=== PATIENT | male | born 1950 | race African-American/Black ===

== ENCOUNTER 2023-09-12 18:23 | Inpatient (IN) | payer OTHER ==
[2023-09-12 19:02] LABS: #Eosinphils 0.1 thou/uL (0.0-0.7); #Lymphocytes 1.1 thou/uL (1.20-3.40); #Monocytes 0.4 thou/uL (0.11-0.59); %Basophils 0.9 % (0.0-1.0); %Eosinophils 1.8 % (0.0-10.0); %Lymphocytes 18.9 % (21.0-51.0); %Monocytes 7.1 % (0.0-10.0); %Neutrophils 71.4 % (42.0-75.0); Hematocrit 38.8 % (42.0-52.0); Hemoglobin 12.1 g/dL (14.0-18.0); Mean Corpuscular HGB CONC 31.1 g/dL (32.0-36.0); Mean Corpuscular Hemoglobin 29.8 pg (27.0-31.0); Mean Platelet Volume 7.6 fL (7.4-10.4); Platelet Count 283 10x3/uL (130-400); RBC Distribution Width 12.7 % (11.5-14.5); Red Blood Cell (RBC) Count 4.04 mill/uL (4.70-6.10); White Blood Cell (WBC) Count 5.6 10x3/uL (4.8-10.8)
[2023-09-12 19:11] LABS: Bilirubin Small (Negative); Blood, Urine Negative (Negative); Clarity Slightly Cloudy (Clear); Glucose, Urine (Dipstick) Negative (Negative); Ketone, Urine 15 mg/dL (Negative); Leukocyte Moderate (Negative); Nitrite Negative (Negative); Protein, Urine (Dipstick) > or equal to 300 mg/dL (Neg-Trace); Specific Gravity, Urine 1.025 (1.005-1.030)
[2023-09-12 19:12] LABS: INR-International Normal Ratio 0.9; Prothrombin Time 12.3 sec (12.0-14.7)
[2023-09-12 19:13] LABS: PTT 28.7 sec (22.9-36.1)
[2023-09-12 19:15] LABS: D-Dimer Test 0.32 mcg/mL (0.27-0.43)
[2023-09-12 19:20] LABS: ALT (SGPT) 13 U/L (8-55); AST (SGOT) 17 U/L (5-34); Albumin 3.7 g/dL (3.4-4.8); Alkaline Phosphatase 112 U/L (40-110); Anion Gap 13 mmol/L (10-20); BUN (Urea Nitrogen) 12 mg/dL (8.4-25.7); Bilirubin, Total 0.3 mg/dL (0.2-1.2); Calc. Creatinine Clearance 0 mL/min (70-130); Calcium 9.3 mg/dL (7.8-10.44); Carbon Dioxide 24 mmol/L (23-31); Chloride 110 mmol/L (98-107); Estimated GFR 52; Glucose 142 mg/dL (83-110); Protein, Total 7.7 g/dL (5.8-8.1); Sodium 143 mmol/L (136-145)
[2023-09-12 19:21] LABS: Acetaminophen Less than 10 mcg/mL (10.0-30.0); Alcohol Less than 10.0 mg/dL (Less than 10); Salicylate Less than 8.0 mg/dL (15.0-30.0)
[2023-09-12 19:22] LABS: Troponin I 0.015 ng/mL (< 0.028)
[2023-09-12 19:25] LABS: Bacteria/HPF 4+ HPF (None Seen); CAUTI Indications for Culture Alt mental st,lethar; RBC/HPF None Seen HPF (0-3)
[2023-09-12 19:27] LABS: Urine Culture Reflex Yes Yes
[2023-09-12 19:46] LABS: Influenza A by NAA Not Detected (NotDetected); Influenza B by NAA Not Detected (NotDetected); SARS-CoV-2 NAA Rapid Test Not Detected (NotDetected)
[2023-09-12] MEDS ORDERED: Ipratropium/Albuterol 3 ML NEB NEB PRN (21:59)
[2023-09-12] MEDS ORDERED: Acetaminophen 325 MG TAB PO PRN (22:00)
[2023-09-12] MEDS ORDERED: Ondansetron PF 4 MG/2 ML Vial IVP PRN (22:00)
[2023-09-12] MEDS ORDERED: Ondansetron ODT 4 MG TAB SL PRN (22:00)
[2023-09-12] MEDS: Acetaminophen 500 MG TAB ONE (22:28)
[2023-09-12] MEDS: Sodium Chloride 0.9% 100 ML ONE (22:28)
[2023-09-12] MEDS: cefTRIAXone (ROCEPHIN) 2 GM VIAL ONE (22:29)
[2023-09-12] MEDS: Vancomycin 1 GM VIAL ONE (22:29)
[2023-09-12] MEDS: Sodium Chloride 0.9% 1,000 ML IV SCH (23:22)
[2023-09-13 07:26] LABS: Hematocrit 37.2 % (42.0-52.0); Hemoglobin 11.9 g/dL (14.0-18.0); Mean Corpuscular HGB CONC 31.9 g/dL (32.0-36.0); Mean Corpuscular Hemoglobin 30.2 pg (27.0-31.0); Mean Corpuscular Volume 94.9 fl (78.0-98.0); RBC Distribution Width 12.2 % (11.5-14.5); Red Blood Cell (RBC) Count 3.92 mill/uL (4.70-6.10); White Blood Cell (WBC) Count 5.6 10x3/uL (4.8-10.8)
[2023-09-13 07:27] LABS: #Basophils 0.1 thou/uL (0.0-0.2); #Eosinphils 0.1 thou/uL (0.0-0.7); #Monocytes 0.4 thou/uL (0.11-0.59); #Neutrophils 3.5 thou/uL (1.40-6.50); %Basophils 1.7 % (0.0-1.0); %Eosinophils 2.6 % (0.0-10.0); %Neutrophils 63.7 % (42.0-75.0); MDiff Complete? YES; Manual Diff?? NO; Platelet Count 120 10x3/uL (130-400)
[2023-09-13 07:56] LABS: ALT (SGPT) 11 U/L (8-55); AST (SGOT) 17 U/L (5-34); Albumin 3.3 g/dL (3.4-4.8); Alkaline Phosphatase 91 U/L (40-110); Anion Gap 11 mmol/L (10-20); BUN (Urea Nitrogen) 9 mg/dL (8.4-25.7); Bilirubin, Total 0.5 mg/dL (0.2-1.2); Calc. Creatinine Clearance 64 mL/min (70-130); Calcium 8.6 mg/dL (7.8-10.44); Carbon Dioxide 23 mmol/L (23-31); Chloride 113 mmol/L (98-107); Estimated GFR 85; Globulin 3.2 g/dL (2.4-3.5); Glucose 88 mg/dL (83-110); Potassium 3.7 mmol/L (3.5-5.1); Protein, Total 6.5 g/dL (5.8-8.1); Sodium 143 mmol/L (136-145)
[2023-09-13] MEDS ORDERED: Albuterol 2.5 MG (3 mL) NEB NEB PRN (08:22)
[2023-09-13] MEDS ORDERED: Acetaminophen 325 MG TAB PO PRN (08:26)
[2023-09-13] MEDS ORDERED: Senokot S 8.6-50 MG TAB PO PRN (08:26)
[2023-09-13] MEDS ORDERED: Non-Formulary Item 1 EACH (Fluticasone Propion/Salmeterol [Advair Diskus 250/50] 1 EACH B IH SCH (09:00)
[2023-09-13] MEDS: Amlodipine 5 MG TAB PO SCH (09:46)
[2023-09-13] MEDS: Enoxaparin 40 MG (0.4 mL) SYRINGE SC SCH (09:46)
[2023-09-13] MEDS: Aspirin 81 mg Enteric Coated Tablet PO SCH (09:46)
[2023-09-13] MEDS: Tamsulosin HCl 0.4 MG CAP PO SCH (09:46)
[2023-09-13] MEDS: Saccharomyces boulardii 250 MG CAP PO SCH (09:46)
[2023-09-13] MEDS: Clopidogrel Bisulfate 75 MG TAB PO SCH (09:46)
[2023-09-13] MEDS: cefTRIAXone\\ROCEPHIN 2 GM in Sodium Chloride 0.9% 100 ML IVPB SCH (20:21)
[2023-09-13] MEDS: Donepezil HCl 10 MG TAB PO SCH (20:21)
[2023-09-13] MEDS: Mometasone/Formoterol 200/5 60 PUFF INH SCH (20:22)
[2023-09-14 19:01] VITALS: TEMP 98.6
[2023-09-15 10:49] VITALS: BP 156/80
== END 2023-09-15 15:00 | disposition home or self-care (01) | DRG 683 ==
LOC: BURERS 18:23 → BURMED 19:56
PROVIDERS: ADMIT Family Medicine; ATTEND Family Medicine
DX: N17.9 Acute kidney failure, unspecified (principal); N39.0 Urinary tract infection, site not specified; I10 Essential (primary) hypertension; E78.00 Pure hypercholesterolemia, unspecified; J44.9 Chronic obstructive pulmonary disease, unspecified; Z98.890 Other specified postprocedural states; F17.210 Nicotine dependence, cigarettes, uncomplicated; Z79.899 Other long term (current) drug therapy; Z79.82 Long term (current) use of aspirin; F03.90 Unspecified dementia, unspecified severity, without behavioral disturbance, psychotic disturbance, mood disturbance, and anxiety; N40.0 Benign prostatic hyperplasia without lower urinary tract symptoms; Z83.3 Family history of diabetes mellitus; Z82.49 Family history of ischemic heart disease and other diseases of the circulatory system
CPT/HCPCS: 36415; 71045; 80053; 80307; 81001; 83605; 83880; 84443; 84484; 85025; 85379; 85610; 85730; 87040; 87077; 87086; 87186; 93005; 94664; 94760; 96361; 96365; 96367; J0696; J1650; J3370; J3490; J7050